=== PATIENT | female | born 1945 | race Caucasian/White ===

== ENCOUNTER 2017-09-24 07:50 | Day surgery (SDC) | payer OTHER, BC ==
[2017-09-19 14:02] VITALS: BMI 18.0
[2017-09-24] MEDS ORDERED: PROPOFOL 20 ML ONE ×2 (08:05)
[2017-09-24 10:17] VITALS: TEMP 98
[2017-09-24 11:03] VITALS: BP 105/60; PULSE 75
== END 2017-09-24 11:04 | disposition home or self-care (01) ==
LOC: FASU-ENDO 07:50
PROVIDERS: ATTEND Internal Medicine Gastroenterology
PROC: 0DJD8ZZ Inspection of Lower Intestinal Tract, Via Natural or Artificial Opening Endoscopic (ICD-10-PCS; principal; 2017-09-24 09:44)
DX: Z12.11 Encounter for screening for malignant neoplasm of colon (principal); Z80.0 Family history of malignant neoplasm of digestive organs; Z83.71 Family history of colonic polyps; K64.8 Other hemorrhoids